=== PATIENT | female | born 1940 | race Hispanic/Latino ===

== ENCOUNTER → 2025-11-11 | Outpatient (CLI) | payer OTHER ==
[~2025-11-11] MED LIST: CARV6.25 PO; HYDR25TA67 PO; LEVO75TA10 PO; OLME40TA18 PO; PRAS10TA9 PO; ROSU10TA98 PO; SPIR25TA6 PO
--- NOTE | 2025-11-20 12:26 | HMCIMG ---
Examination: Chest radiographs, 2 views. Clinical Information: Shortness of breath. Comparison: None. Findings: Support tubes and lines: None. Heart, mediastinum, and pulmonary vasculature: The cardiomediastinal silhouette is normal in size. No pulmonary vascular congestion. The aorta is tortuous. Lungs and pleura: No consolidation, edema, pleural effusion, or pneumothorax. 3 mm left lower lobe granuloma is noted. Bones: No acute abnormality. Other findings: None. Impression: No acute cardiopulmonary process. /Miguel
== END | disposition home or self-care (01) ==
LOC: RAH 14:22
PROVIDERS: ATTEND Nurse Practitioner Family
DX: R06.02 Shortness of breath (principal)
CPT/HCPCS: 71046